=== PATIENT | female | born 1985 | race Caucasian/White ===

== ENCOUNTER 2017-07-14 15:24 | Emergency (ER) | payer MEDICAID, OTHER ==
[2017-07-14] MEDS: ACETAMINOPHEN 500 MG TAB PO (16:24)
[2017-07-14 16:37] LABS: ADD MAN DIFF? NO
[2017-07-14 16:39] LABS: WHITE BLOOD COUNT 9.5 10^3/ul (4.8-10.8)
[2017-07-14 16:39] LABS: BASOPHILS % 0.2 % (0.0-2.0); EOSINOPHILS # 0.2 10^3/ul (0.0-0.5); EOSINOPHILS % 1.9 % (0.0-7.0); HEMATOCRIT 32.5 % (37.0-47.0); HEMOGLOBIN 10.6 g/dl (12.0-16.0); LYMPHOCYTES # 2.1 10^3/ul (0.8-2.9); LYMPHOCYTES % 22.1 % (15.0-51.0); MEAN CORPUSCULAR HEMOGLOBIN 28.6 pg (29.0-33.0); MEAN CORPUSCULAR HGB CONC 32.6 g/dl (32.0-37.0); MEAN CORPUSCULAR VOLUME 87.8 fl (82.0-101.0); MEAN PLATELET VOLUME 10.5 fl (7.4-10.4); MONOCYTE # 0.5 10^3/ul (0.3-0.9); MONOCYTES % 5.7 % (0.0-11.0); NEUTROPHIL # 6.6 10^3/ul (1.6-7.5); NEUTROPHILS % 69.6 % (39.0-77.0); PLATELET COUNT 195 10^3/UL (140-415); RED CELL DISTRIBUTION WIDTH 13.9 % (11.5-14.5)
[2017-07-14 16:44] LABS: ADD UMIC NO; UR ASCORBIC ACID NEGATIVE (NEGATIVE); UR BILIRUBIN (Dip) NEGATIVE (NEGATIVE); UR BLOOD (Dip) NEGATIVE (NEGATIVE); UR CLARITY CLEAR (CLEAR); UR COLOR YELLOW (YELLOW); UR GLUCOSE (Dip) NEGATIVE (NEGATIVE); UR KETONES (Dip) NEGATIVE (NEGATIVE); UR LEUKOCYTE ESTERASE (Dip) NEGATIVE Leu/ul (NEGATIVE); UR NITRITE (Dip) NEGATIVE (NEGATIVE); UR SPECIFIC GRAVITY (Dip) 1.016 (1.003-1.030); UR TOTAL PROTEIN (Dip) NEGATIVE (NEGATIVE); UR UROBILINOGEN (Dip) NEGATIVE (NEGATIVE)
[2017-07-14 17:03] LABS: ALANINE AMINOTRANSFERASE 20 IU/L (13-69); ALBUMIN 3.7 g/dl (3.3-4.9); ALBUMIN/GLOBULIN RATIO 1.19; ALKALINE PHOSPHATASE 76 IU/L (42-121); AMYLASE 81 U/L (11-123); ANION GAP 15 (8-16); ASPARTATE AMINO TRANSFERASE 11 IU/L (15-46); BILIRUBIN,INDIRECT 0.1 mg/dl (0-1.1); BILIRUBIN,TOTAL 0.1 mg/dl (0.2-1.3); BLOOD UREA NITROGEN 6 mg/dl (7-20); CALCIUM 9.2 mg/dl (8.4-10.2); CARBON DIOXIDE 29 mmol/L (21-31); CHLORIDE 104 mmol/L (97-110); CREATININE 0.57 mg/dl (0.44-1.00); GLUCOSE 84 mg/dl (70-220); LIPASE 53 U/L (23-300); POTASSIUM 3.5 mmol/L (3.5-5.1); SODIUM 144 mmol/L (135-144); TOTAL PROTEIN 6.8 g/dl (6.1-8.1)
== END 2017-07-14 18:16 | disposition home or self-care (01) ==
LOC: FTE 15:24
DX: O26.892 Other specified pregnancy related conditions, second trimester (principal); R10.2 Pelvic and perineal pain; O36.72X1 Maternal care for viable fetus in abdominal pregnancy, second trimester, fetus 1; Z3A.16 16 weeks gestation of pregnancy
CPT/HCPCS: 76805; 80053; 81003; 82150; 83690; 84702; 85025; 86900; 86901; 87086; 99284-25

== ENCOUNTER 2018-01-01 11:11 | Emergency (ER) | payer MEDICAID | END 2018-01-01 13:48 | disposition home or self-care (01) | LOC: FTE 11:11 | DX: O86.0 Infection of obstetric surgical wound (principal); B96.89 Other specified bacterial agents as the cause of diseases classified elsewhere; Z48.01 Encounter for change or removal of surgical wound dressing | CPT/HCPCS: 99283; Z7502 ==

== ENCOUNTER 2018-05-29 18:32 | Emergency (ER) | payer MEDICAID ==
[2018-05-29 23:34] LABS: URINE BLOOD (Dip) POC Negative (NEGATIVE); URINE GLUCOSE (Dip) POC Negative (NEGATIVE); URINE KETONES (Dip) POC Negative (NEGATIVE); URINE LEUKOCYTE EST (Dip) POC Trace (NEGATIVE); URINE NITRITE (Dip) POC Negative (NEGATIVE); URINE TOTAL PROTEIN POC Negative (NEGATIVE)
== END 2018-05-30 00:03 | disposition home or self-care (01) ==
LOC: FTE 05-30 00:03
DX: N76.0 Acute vaginitis (principal)
CPT/HCPCS: 81003; 84703; 99283

== ENCOUNTER 2018-08-24 13:09 | Emergency (ER) | payer MEDICAID ==
[2018-08-24] MEDS: KETOROLAC 60 MG INJ IM (15:11)
== END 2018-08-24 15:30 | disposition home or self-care (01) ==
LOC: FTE 13:09
DX: R51 Headache (principal)
CPT/HCPCS: 81025; 96372; 99284-25